=== PATIENT | female | born 1990 | race African-American/Black ===

== ENCOUNTER 2016-10-15 12:35 | Emergency (ER) | payer SELFPAY ==
[~2016-10-15] VITALS: Ht 154.9 cm; Wt 59.0 kg
[2016-10-15 12:39] VITALS: BP 115/72
== END 2016-10-15 16:10 | disposition left against medical advice (07) ==
LOC: ER 12:41
DX: Z30.431 Encounter for routine checking of intrauterine contraceptive device (principal); Z53.21 Procedure and treatment not carried out due to patient leaving prior to being seen by health care provider